=== PATIENT | male | born 1980 | race Caucasian/White ===

== ENCOUNTER 2017-11-07 15:37 | Emergency (ER) | payer OTHER ==
[~2017-11-07] VITALS: Ht 180.3 cm; Wt 84.0 kg
[2017-11-07 16:44] VITALS: BP 144/94
== END 2017-11-07 16:45 | disposition home or self-care (01) ==
LOC: EME 15:37
PROC: 0D9P3ZZ Drainage of Rectum, Percutaneous Approach (ICD-10-PCS; principal; 2017-11-07)
DX: K64.5 Perianal venous thrombosis (principal); Z88.8 Allergy status to other drugs, medicaments and biological substances; Z88.2 Allergy status to sulfonamides
CPT/HCPCS: 99281; 99285

== ENCOUNTER 2017-11-07 18:00 | Emergency (ER) | payer OTHER ==
[~2017-11-07] VITALS: Ht 180.3 cm; Wt 83.2 kg
[2017-11-07 18:58] VITALS: BP 152/96
== END 2017-11-07 18:59 | disposition home or self-care (01) ==
LOC: EME 18:00
DX: K64.5 Perianal venous thrombosis (principal); F90.9 Attention-deficit hyperactivity disorder, unspecified type; Z88.2 Allergy status to sulfonamides
CPT/HCPCS: 99281; 99283